=== PATIENT | female | born 1945 | race Caucasian/White ===

== ENCOUNTER 2017-10-19 10:47 | Emergency (ER) | payer OTHER ==
[2017-10-19] MEDS ORDERED: HYDROCODONE/APAP 7.5/325 MG TAB ONE (12:52)
[2017-10-19] MEDS ORDERED: KETOROLAC 30 MG/ML INJ ONE (12:53)
[2017-10-19] MEDS ORDERED: METHOCARBAMOL 1,000 MG in NA CHLORIDE 0.9% 100 ML IV SCH (13:00)
[2017-10-19 13:20] LABS: Glomerular Filtration Rate > 60 mL/min (>60)
--- NOTE | 2017-10-19 13:49 | RAD REPORT ---
EXAM DESCRIPTION: CT - Soft Tissue Neck W/Contr CLINICAL HISTORY: Neck pain, soreness and swelling. COMPARISON: 03/03/[address] scans are performed using dose optimization technique as appropriate and may includ e automated exposure control or mA/KV adjustment according to patient size. FINDINGS: No intrinsic or extrinsic neck mass is identified. No prevertebral fluid collection. No bulky adenopathy seen in the neck. No vascular abnormality of concern. Salivary glands are symmetric. Moderate frontoethmoidal polypoid mucosal sinus thickening seen. Mild fluid is also seen in the sphenoid sinuses and mild mucoperiosteal thickening is seen in both maxilla ry antra. Both mastoid air cells are clear. Degenerative changes are present involving the cervical spine. 2 mm anterolisthesis of C4 on 5 is not ed. Prominent spondylosis with disc thinning posterior osteophyte present at C5-6 and C6-7. IMPRESSION: No acute or aggressive abnormality seen in the neck soft tissues. Moderate multifocal paranasal sinusitis. Moderate mid and lower cervical degenerative change, without significant progression since 03/03/2016 .
--- NOTE | 2017-10-19 14:13 | ER ---
Nurse's Notes [facility] Name: Elvia De La Torre Age: 72 yrs Sex: Female : 1945 Arrival Date: 10/19/2017 Time: 10:52 Bed 19 Private MD: Diagnosis: Neck pain, Musculoskeletal pain Presentation: 10/19 11:04 Presenting complaint: Patient states: Neck pain x 2-3 days. Denies injury. Pt reports hb she has recently been sick with URI, has been sleeping on extra pillows the last week and it has made her neck very sore. Transition of care: patient was not received from another setting of care. Onset of symptoms is unknown. Care prior to arrival: None. 11:04 Method Of Arrival: Ambulatory hb 11:04 Acuity: SANIA 3 hb Historical: - Allergies: 11:07 Augmentin; hb - PSHx: 11:07 None; hb - Immunization history:: Adult Immunizations up to date. - Social history:: Smoking status: Patient/guardian denies using tobacco. Screenin:48 Abuse screen: Denies threats or abuse. Denies injuries from another. Nutritional hj screening: No deficits noted. Tuberculosis screening: No symptoms or risk factors identified. Fall Risk None identified. Assessment: 11:47 General: Appears in no apparent distress. uncomfortable, Behavior is calm, cooperative, hj appropriate for age. Pain: Complains of pain in base of the skull. Neuro: Level of Consciousness is awake, alert, obeys commands, Oriented to person, place, time, situation. Cardiovascular: Capillary refill < 3 seconds Patient's skin is warm and dry. Respiratory: Airway is patent Respiratory effort is even, unlabored, Respiratory pattern is regular, symmetrical. GI: No signs and/or symptoms were reported involving the gastrointestinal system. : No signs and/or symptoms were reported regarding the genitourinary system. EENT: No signs and/or symptoms were reported regarding the EENT system. Derm: No signs and/or symptoms reported regarding the dermatologic system. Musculoskeletal: No signs and/or symptoms reported regarding the musculoskeletal system. 12:45 Reassessment: Patient and/or family updated on plan of care and expected duration. Pain hj level reassessed. Patient is alert, oriented x 3, equal unlabored respirations, skin warm/dry/pink. 14:39 Reassessment: Patient and/or family updated on plan of care and expected duration. Pain hj level reassessed. Patient is alert, oriented x 3, equal unlabored respirations, skin warm/dry/pink. Patient states feeling better. Patient states symptoms have improved. Vital Signs: 11:05 BP 125 / 83; Pulse 91; Resp 16; Temp 98.9; Pulse Ox 99% on R/A; Weight 72.12 kg; Height hb 5 ft. 8 in. (172.72 cm); Pain 8/10; 13:30 BP 126 / 78; Pulse 89; Resp 18; Pulse Ox 100% on R/A; hj 14:39 BP 127 / 75; Pulse 85; Resp 18; Pulse Ox 100% on R/A; hj 11:05 Body Mass Index 24.18 (72.12 kg, 172.72 cm) hb ED Course: 10:52 Patient arrived in ED. mr 11:05 Triage completed. hb 11:05 Arm band placed on right wrist. hb 11:20 Alfredito Clayton MD is Attending Physician. kdr 11:47 Sherman Hutchinson RN is Primary Nurse. hj 11:49 Patient has correct armband on for positive identification. Bed in low position. Call hj light in reach. Side rails up X 1. 12:51 Radiology exam delayed due to lab results not completed at this time. (BUN/Creatinine). vr 12:58 Inserted saline lock: 20 gauge in right antecubital area, using aseptic technique. ap3 Blood collected. 13:20 Radiology exam delayed due to lab results not completed at this time. (BUN/Creatinine). vr 13:38 CT completed. Patient tolerated procedure well. Patient moved to CT via wheelchair. vr Patient moved back from CT. 13:40 CT Soft Tissue Neck W/contr In Process Unspecified. EDMS 14:26 No provider procedures requiring assistance completed. IV discontinued, intact, hj bleeding controlled, No redness/swelling at site. Pressure dressing applied. Administered Medications: 12:24 Drug: TORadol 15 mg Route: IVP; Site: right antecubital; hj 13:11 Follow up: Response: No adverse reaction; Pain is decreased hj 12:24 Drug: [place] (7.5 mg-325 mg) 1 tabs Route: PO; hj 12:38 Follow up: Response: No adverse reaction hj 12:38 Follow up: Response: Pain is decreased hj 13:11 Drug: Robaxin 1 grams Route: IVPB; Infused Over: 1 hrs; Site: right antecubital; hj 13:11 Follow up: IV Status: Completed infusion Outcome: 13:20 Attestation : i witnessed the IV insertion of the student nurse;. hj 14:12 Discharge ordered by . kdr 14:38 Discharged to home ambulatory, with family. hj 14:38 Condition: stable 14:38 Discharge instructions given to patient, family, Instructed on discharge instructions, follow up and referral plans. medication usage, Demonstrated understanding of instructions, follow-up care, medications, Prescriptions given X 3. 14:40 Patient left the ED. Signatures: Dispatcher [employer] EDMS Alfredito Clayton MD MD kdr Rivera, Maria mr Davis, Victoria vr Joaquin, Henry, RN RN hj Baxter, Heather, RN RN Shanda Vigil ap3 Corrections: (The following items were deleted from the chart) 11:08 11:07 Allergies: PENICILLINS; hb hb 11:09 11:04 Presenting complaint: Patient states: Neck pain x 2-3 days. Denies injury. hb hb 13:07 11:04 Acuity: SANIA 4 hb hb
--- NOTE | 2017-10-19 14:13 | EDPHYS ---
Physician Documentation [facility] Name: Elvia De La Torre Age: 72 yrs Sex: Female : 1945 Arrival Date: 10/19/2017 Time: 10:52 Bed 19 Private MD: ED Physician Alfredito Clayton HPI: 10/19 17:27 This 72 yrs old Female presents to ER via Ambulatory with complaints of Stiff kdr Neck. 17:27 The patient or guardian complains of decreased range of motion, pain, that is acute, kdr spasm, tenderness. The symptoms are located at the C2, C3 and C4, at the cervical spine. Onset: The symptoms/episode began/occurred gradually, 3 day(s) ago. Context: The problem was sustained at home, The neck injury/problem resulted from from unknown cause, Has been sleeping on different pillows the last few days. Associated signs and symptoms: The patient has no apparent associated signs or symptoms. The pain does not radiate. Modifying factors: The symptoms are alleviated by nothing. the symptoms are aggravated by. Severity of symptoms: At their worst the symptoms were mild, in the emergency department the symptoms are unchanged. The patient has not experienced similar symptoms in the past. The patient has not recently seen a physician. Historical: - Allergies: 11:07 Augmentin; hb - PSHx: 11:07 None; hb - Immunization history:: Adult Immunizations up to date. - Social history:: Smoking status: Patient/guardian denies using tobacco. ROS: 17:27 Constitutional: Negative for fever, chills, and weight loss, Eyes: Negative for injury, kdr pain, redness, and discharge, ENT: Negative for injury, pain, and discharge, Cardiovascular: Negative for chest pain, palpitations, and edema, Respiratory: Negative for shortness of breath, cough, wheezing, and pleuritic chest pain, Abdomen/GI: Negative for abdominal pain, nausea, vomiting, diarrhea, and constipation, Back: Negative for injury and pain, MS/Extremity: Negative for injury and deformity, Skin: Negative for injury, rash, and discoloration, Neuro: Negative for headache, weakness, numbness, tingling, and seizure activity. Psych: Negative for depression, anxiety, suicide ideation, homicidal ideation, and hallucinations, Allergy/Immunology: Negative for hives, rash, and allergies, Endocrine: Negative for neck swelling, polydipsia, polyuria, polyphagia, and marked weight changes, Hematologic/Lymphatic: Negative for swollen nodes, abnormal bleeding, and unusual bruising. 17:27 Neck: Positive for pain with movement, pain at rest, tenderness, of the right posterior aspect of neck and left posterior aspect of neck. Exam: 17:27 Constitutional: This is a well developed, well nourished patient who is awake, alert, kdr and in no acute distress. Head/Face: Normocephalic, atraumatic. Eyes: Pupils equal round and reactive to light, extra-ocular motions intact. Lids and lashes normal. Conjunctiva and sclera are non-icteric and not injected. Cornea within normal limits. Periorbital areas with no swelling, redness, or edema. Chest/axilla: Normal chest wall appearance and motion. Nontender with no deformity. No lesions are appreciated. Cardiovascular: Regular rate and rhythm with a normal S1 and S2. No gallops, murmurs, or rubs. Normal PMI, no JVD. No pulse deficits. Respiratory: Lungs have equal breath sounds bilaterally, clear to auscultation and percussion. No rales, rhonchi or wheezes noted. No increased work of breathing, no retractions or nasal flaring. Abdomen/GI: Soft, non-tender, with normal bowel sounds. No distension or tympany. No guarding or rebound. No evidence of tenderness throughout. 17:27 Neck: External neck: is normal, no abrasions, no abscess, no cellulitis, no ecchymosis, no erythema, no laceration, C-spine: Thyroid: appears normal, Trachea: is midline with no obvious abnormalities, ROM/movement: pain, that is mild, that is moderate, limited range of motion, that is mild. Vital Signs: 11:05 BP 125 / 83; Pulse 91; Resp 16; Temp 98.9; Pulse Ox 99% on R/A; Weight 72.12 kg; Height hb 5 ft. 8 in. (172.72 cm); Pain 8/10; 13:30 BP 126 / 78; Pulse 89; Resp 18; Pulse Ox 100% on R/A; hj 14:39 BP 127 / 75; Pulse 85; Resp 18; Pulse Ox 100% on R/A; hj 11:05 Body Mass Index 24.18 (72.12 kg, 172.72 cm) hb MDM: 14:12 Patient medically screened. kdr 18:14 Data reviewed: vital signs, nurses notes, lab test result(s). Counseling: I had a kdr detailed discussion with the patient and/or guardian regarding: the historical points, exam findings, and any diagnostic results supporting the discharge/admit diagnosis, lab results, radiology results. 10/19 12:52 Order name: Creatinine for Radiology; Complete Time: 14:10 ag 10/19 12:24 Order name: CT Soft Tissue Neck W/contr; Complete Time: 14:10 kdr Administered Medications: 12:24 Drug: TORadol 15 mg Route: IVP; Site: right antecubital; hj 13:11 Follow up: Response: No adverse reaction; Pain is decreased hj 12:24 Drug: [place] (7.5 mg-325 mg) 1 tabs Route: PO; hj 12:38 Follow up: Response: No adverse reaction hj 12:38 Follow up: Response: Pain is decreased hj 13:11 Drug: Robaxin 1 grams Route: IVPB; Infused Over: 1 hrs; Site: right antecubital; hj 13:11 Follow up: IV Status: Completed infusion hj Disposition: 10/19/17 14:12 Discharged to Home. Impression: Neck pain, Musculoskeletal pain. - Condition is Stable. - Discharge Instructions: Torticollis, Acute. - Prescriptions for Ibuprofen 600 mg Oral Tablet - take 1 tablet by ORAL route every 6 hours As needed take with food; 15 tablet. Robaxin 500 mg Oral Tablet - take 2 tablet by ORAL route every 6 hours As needed; 40 tablet. Tramadol 50 mg Oral Tablet - take 1 tablet by ORAL route every 8 hours as needed; 12 tablet. - Medication Reconciliation Form, Thank You Letter, Antibiotic Education, Prescription Opioid Use form. - Follow up: Private Physician; When: 2 - 3 days; Reason: If symptoms return, Further diagnostic work-up, Recheck today's complaints, Continuance of care, Re-evaluation by your physician. - Problem is new. - Symptoms have improved. Signatures: Dispatcher [employer] EDMS Alfredito Clayton MD MD [facility] Sherman Hutchinson RN RN Analisa Summers RN RN hb Corrections: (The following items were deleted from the chart) 11:08 11:07 Allergies: PENICILLINS; hb hb
[2017-10-19 14:47] VITALS: TEMP 98.9
[2017-10-19 14:48] VITALS: O2SAT 100
[2017-10-19 14:49] VITALS: BP 127/75
== END 2017-10-19 14:40 | disposition home or self-care (01) ==
LOC: ER 10:47
DX: M79.1 Myalgia (principal)
CPT/HCPCS: 36415; 70491; 96374; 96375; 99284; J2800; Q9967